=== PATIENT | male | born 1970 | race Caucasian/White ===

== ENCOUNTER 2021-06-23 20:10 | Emergency (ER) | payer SELFPAY ==
[~2021-06-23] VITALS: Ht 185.4 cm; Wt 88.5 kg
== END 2021-06-24 00:50 | disposition home or self-care (01) ==
LOC: ER 20:53
DX: J40 Bronchitis, not specified as acute or chronic (principal); R05.9 Cough, unspecified; R07.89 Other chest pain; R91.8 Other nonspecific abnormal finding of lung field
CPT/HCPCS: 71250; 93005; 99283